=== PATIENT | male | born 1965 | race Caucasian/White ===

== ENCOUNTER 2021-09-21 10:29 | Outpatient (CLI) | payer MEDICARE, SELFPAY ==
[2021-09-21 20:05] LABS: Alanine Aminotransferase 25 U/L (6-50); Albumin Level 4.7 g/dL (3.5-5.1); Alkaline Phosphatase 84 U/L (38-126); Anion Gap 8 mmol/L (8-16); Aspartate Amino Transferase 31 U/L (17-59); Bilirubin,Total 0.8 mg/dL (0.2-1.3); Blood Urea Nitrogen 11 mg/dL (9-20); Calcium 9.3 mg/dL (8.4-10.2); Carbon Dioxide 23 mmol/L (22-30); Chloride 99 mmol/L (98-107); Cholesterol 191 mg/dL (0-200); Estimated Glomerular Filt Rate > 60; Glucose 118 mg/dL (65-110); HDL Direct 44 mg/dL; Potassium 4.6 mmol/L (3.4-5.0); Sodium 130 mmol/L (137-145); Triglycerides 190 mg/dL (<150)
[2021-09-21 20:24] LABS: LDL Cholesterol Direct 99 mg/dL
[2021-09-21 20:28] LABS: Prostate Specific Antigen 0.9 ng/mL (< OR = 4.0)
[2021-09-21 20:29] LABS: Hemoglobin A1C 5.7 % (<5.7)
== END 2021-09-21 10:30 | disposition home or self-care (01) ==
PROVIDERS: PCP Family Medicine; Visit Provider Family Medicine
DX: Z12.5 Encounter for screening for malignant neoplasm of prostate (principal); Z51.81 Encounter for therapeutic drug level monitoring; R73.01 Impaired fasting glucose; I10 Essential (primary) hypertension; E78.5 Hyperlipidemia, unspecified; Z79.899 Other long term (current) drug therapy
CPT/HCPCS: 36415; 80053; 80061; 83036; 84153; G0103

== ENCOUNTER 2021-09-22 11:49 | Outpatient (CLI) | payer MEDICARE, SELFPAY ==
[2021-09-22 19:02] LABS: Anion Gap 9 mmol/L (8-16); Blood Urea Nitrogen 10 mg/dL (9-20); Calcium 9.9 mg/dL (8.4-10.2); Carbon Dioxide 27 mmol/L (22-30); Chloride 97 mmol/L (98-107); Estimated Glomerular Filt Rate > 60; Glucose 151 mg/dL (65-110); Potassium 5.1 mmol/L (3.4-5.0); Sodium 133 mmol/L (137-145)
== END 2021-09-22 11:50 | disposition home or self-care (01) ==
PROVIDERS: PCP Family Medicine; Visit Provider Family Medicine
DX: E87.1 Hypo-osmolality and hyponatremia (principal)
CPT/HCPCS: 36415; 80048

== ENCOUNTER 2021-09-30 15:19 | Outpatient (CLI) | payer MEDICARE, SELFPAY ==
[2021-09-30 18:40] LABS: Anion Gap 9 mmol/L (8-16); Blood Urea Nitrogen 13 mg/dL (9-20); Calcium 9.1 mg/dL (8.4-10.2); Carbon Dioxide 26 mmol/L (22-30); Chloride 103 mmol/L (98-107); Estimated Glomerular Filt Rate > 60; Glucose 127 mg/dL (65-110); Potassium 4.7 mmol/L (3.4-5.0); Sodium 138 mmol/L (137-145)
== END 2021-09-30 15:20 | disposition home or self-care (01) ==
LOC: ANHGOSHLAB 15:23
PROVIDERS: PCP Family Medicine; Visit Provider Family Medicine
DX: E87.1 Hypo-osmolality and hyponatremia (principal)
CPT/HCPCS: 36415; 80048

== ENCOUNTER 2022-02-21 09:57 | Outpatient (CLI) | payer MEDICARE, SELFPAY ==
[2022-02-21 19:44] LABS: Hemoglobin A1C 5.7 % (<5.7)
[2022-02-21 20:59] LABS: Alanine Aminotransferase 31 U/L (6-50); Albumin Level 4.5 g/dL (3.5-5.1); Alkaline Phosphatase 83 U/L (38-126); Anion Gap 7 mmol/L (8-16); Aspartate Amino Transferase 34 U/L (17-59); Bilirubin,Total 0.5 mg/dL (0.2-1.3); Blood Urea Nitrogen 12 mg/dL (9-20); Calcium 9.1 mg/dL (8.4-10.2); Carbon Dioxide 26 mmol/L (22-30); Chloride 103 mmol/L (98-107); Cholesterol 181 mg/dL (0-200); Estimated Glomerular Filt Rate > 60; Glucose 93 mg/dL (65-110); HDL Direct 44 mg/dL; Potassium 5.1 mmol/L (3.4-5.0); Sodium 136 mmol/L (137-145); Triglycerides 200 mg/dL (<150)
[2022-02-21 21:10] LABS: LDL Cholesterol Direct 89 mg/dL
== END 2022-02-21 09:58 | disposition home or self-care (01) ==
LOC: ANHGOSHLAB 09:59
PROVIDERS: PCP Family Medicine; Visit Provider Nurse Practitioner
DX: R73.03 Prediabetes (principal); E78.5 Hyperlipidemia, unspecified
CPT/HCPCS: 36415; 80053; 80061; 83036

== ENCOUNTER 2022-11-27 11:26 | Outpatient (CLI) | payer MEDICARE, SELFPAY ==
[2022-11-27 19:55] LABS: Alanine Aminotransferase 31 U/L (6-50); Albumin Level 4.7 g/dL (3.5-5.1); Alkaline Phosphatase 74 U/L (38-126); Anion Gap 8 mmol/L (8-16); Aspartate Amino Transferase 35 U/L (17-59); Bilirubin,Total 0.7 mg/dL (0.2-1.3); Blood Urea Nitrogen 14 mg/dL (9-20); Calcium 9.3 mg/dL (8.4-10.2); Carbon Dioxide 22 mmol/L (22-30); Chloride 100 mmol/L (98-107); Cholesterol 197 mg/dL (0-200); Estimated Glomerular Filt Rate > 60; Glucose 118 mg/dL (65-110); HDL Direct 42 mg/dL; Potassium 4.4 mmol/L (3.4-5.0); Sodium 130 mmol/L (137-145); Triglycerides 284 mg/dL (<150)
[2022-11-27 20:06] LABS: Prostate Specific Antigen 0.8 ng/mL (< OR = 4.0)
[2022-11-27 20:07] LABS: LDL Cholesterol Direct 102 mg/dL
[2022-11-27 20:31] LABS: Hemoglobin A1C 5.6 % (<5.7)
== END 2022-11-27 11:27 | disposition home or self-care (01) ==
LOC: ANHGOSHLAB 11:27
PROVIDERS: Nurse Practitioner; PCP Family Medicine; Visit Provider Family Medicine
DX: Z12.5 Encounter for screening for malignant neoplasm of prostate (principal); E78.5 Hyperlipidemia, unspecified; I10 Essential (primary) hypertension; R73.03 Prediabetes; Z79.899 Other long term (current) drug therapy
CPT/HCPCS: 36415; 80053; 80061; 83036; 84153; 84443; G0103

== ENCOUNTER 2023-04-10 11:13 | Outpatient (CLI) | payer MEDICARE, SELFPAY | END 2023-04-10 11:14 | disposition home or self-care (01) | PROVIDERS: PCP Family Medicine; Visit Provider Nurse Practitioner | DX: Z12.5 Encounter for screening for malignant neoplasm of prostate (principal); E78.5 Hyperlipidemia, unspecified; E03.9 Hypothyroidism, unspecified; R73.03 Prediabetes | CPT/HCPCS: 36415; 84153; G0103 ==

== ENCOUNTER 2023-08-24 10:46 | Outpatient (CLI) | payer MEDICARE, SELFPAY ==
[2023-08-24 14:22] LABS: Hemoglobin 14.5 g/dL (14.0-18.0); Mean Corpuscular HGB Conc 33.7 g/dl (32-36); Mean Corpuscular Hemoglobin 33.1 pg (26-34); Mean Corpuscular Volume 98.2 fl (80-100); Mean Platelet Volume 11.1 fl (7.4-10.4); Platelet Count Result 258 k/mm3 (150-375); Red Blood Count 4.38 M/mm3 (4.6-6.20); Red Cell Distribution Width 13.1 % (11.5-14.5); White Blood Count 7.8 K/mm3 (4.5-10.0)
[2023-08-24 14:54] LABS: LDL Cholesterol Direct 89 mg/dL
[2023-08-24 14:56] LABS: Alanine Aminotransferase 37 U/L (6-50); Albumin Level 4.5 g/dL (3.5-5.1); Alkaline Phosphatase 73 U/L (38-126); Anion Gap 11 mmol/L (4-12); Aspartate Amino Transferase 43 U/L (17-59); Bilirubin,Total 0.5 mg/dL (0.2-1.3); Blood Urea Nitrogen 12 mg/dL (9-20); Calcium 9.6 mg/dL (8.4-10.2); Carbon Dioxide 26 mmol/L (22-30); Chloride 101 mmol/L (98-107); Cholesterol 157 mg/dL (0-200); Estimated Glomerular Filt Rate > 60; Glucose 106 mg/dL (65-110); HDL Direct 41 mg/dL; Potassium 5.2 mmol/L (3.4-5.0); Sodium 138 mmol/L (137-145); Triglycerides 202 mg/dL (<150)
[2023-08-24 15:01] LABS: Hemoglobin A1C 5.9 % (<5.7)
[2023-08-24 15:33] LABS: Hepatitis C Virus Antibody Negative (Negative)
== END 2023-08-24 10:47 | disposition home or self-care (01) ==
LOC: ANHGOSHLAB 10:47
PROVIDERS: PCP Family Medicine; Visit Provider Nurse Practitioner
DX: E78.5 Hyperlipidemia, unspecified (principal); I10 Essential (primary) hypertension; E03.9 Hypothyroidism, unspecified; R73.03 Prediabetes; Z11.59 Encounter for screening for other viral diseases
CPT/HCPCS: 36415; 80053; 80061; 83036; 84443; 85027; 86803

== ENCOUNTER 2024-01-28 10:44 | Outpatient (CLI) | payer MEDICARE, SELFPAY ==
[2024-01-28 21:17] LABS: Alanine Aminotransferase 43 U/L (6-50); Albumin Level 4.4 g/dL (3.5-5.1); Alkaline Phosphatase 83 U/L (38-126); Anion Gap 6 mmol/L (4-12); Aspartate Amino Transferase 36 U/L (17-59); Bilirubin,Total 0.6 mg/dL (0.2-1.3); Blood Urea Nitrogen 8 mg/dL (9-20); Calcium 9.2 mg/dL (8.4-10.2); Carbon Dioxide 25 mmol/L (22-30); Chloride 102 mmol/L (98-107); Cholesterol 172 mg/dL (0-200); Estimated Glomerular Filt Rate > 60; Glucose 110 mg/dL (65-110); HDL Direct 46 mg/dL; Sodium 133 mmol/L (137-145); Triglycerides 215 mg/dL (<150)
[2024-01-28 21:28] LABS: LDL Cholesterol Direct 79 mg/dL
[2024-01-28 21:35] LABS: Hemoglobin A1C 5.8 % (<5.7)
== END 2024-01-28 10:45 | disposition home or self-care (01) ==
LOC: ANHGOSHLAB 10:46
PROVIDERS: PCP Family Medicine; Visit Provider Nurse Practitioner
DX: E78.5 Hyperlipidemia, unspecified (principal); R73.03 Prediabetes
CPT/HCPCS: 36415; 80053; 80061; 83036

== ENCOUNTER 2024-06-06 10:36 | Outpatient (CLI) | payer MEDICARE, SELFPAY ==
--- OUTSIDE RECORDS SUMMARY | 2024-06-06 10:59 | XMS_ITS | Referral Summary ---
Author Organization [facility] [place] [address] Address [address] [place] [address] Care Team Providers Care Medicaid Billing Clerk Name Role Phone Sarina Isidro DO Primary Care Provider [phone]- [phone] Encounters Date Type Department Care Team Description 03/10/2024 Telephone [facility] Cardiology [address] [place] [address] Anatoliy Perez MD from Last 3 Months Allergies No known active allergies Medications aspirin 81 mg tablet Take 1 tablet (81 mg total) by mouth 2 (two) times a day Active PARoxetine (PAXIL) 10 mg tabletIndicati ons:Anxiety with Depression Take 1 tablet (10 mg total) by mouth daily as needed Active nitroglycerin (Nitrostat) 0.[address] 1 tablet (0.4 mg total) under the tongue every 5 (five) minutes as needed for chest pain 30 tablet 3 3 Active lisinopriL (PRINIVIL,ZEST RIL) 20 mg tablet TAKE 1 TABLET BY MOUTH EVERY DAY 90 tablet 2 4 Active carvediloL (COREG) 12.5 mg tablet TAKE 1 TABLET BY MOUTH TWICE A DAY WITH FOOD 180 tablet 2 4 Active rosuvastatin (CRESTOR) 20 mg tablet TAKE 1 TABLET BY MOUTH EVERY DAY 90 tablet 2 5 Active rosuvastatin (CRESTOR) 20 mg tablet Take 1 tablet (20 mg total) by mouth daily 90 tablet 3 4 05/31/19 25 Discontinued Active Problems Problem Noted Date Diagnosed Date Angina pectoris, unspecified 12/13/2022 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 Overview (03/23/2021): Added automatically from request for surgery [id number] Assessment & Plan (04/15/2021 10:01 AM PUBLIC SAFETY TEACHER): - 3/2 S/p right superficial femoral artery to posterior tibial artery vein bypass - OU - Q4 hr NV checks - Pain control: Tylenol, oxycodone PRN - Advance diet as tolerated - Increase activity: OOB with assistance - PT/OT recommendations appreciated - Continue ASA, statin - DVT prophylaxis - Resume home meds as able Cardiomyopathy, ischemic 08/02/2017 Coronary arteriosclerosis in [place] artery 01/02 Overview (05/18/2016): Coronary arteriosclerosis in [place] Immunizations Immunization Administration Dates Next Due Influenza, Unspecified 11/12/2020 Social History Tobacco Use Types Packs/Day Years Used Date Smoking Tobacco: Former Cigarettes Q uit: 2020 Passive Smoke Exposure: Past Smokeless Tobacco: Never Tobacco Cessation:Counseling Given: Not Answered Alcohol Use Standard Drinks/Week Comments No 0 (1 standard drink = 0.6 oz pur e alcohol) AUDIT-C Answer Date Recorded Q1: How often do you have a drink containing alcohol? 4 or more times a week 05/16/2021 Q2: How many drinks containi ng alcohol do you have on a typical day when you are drinking? 3 or 4 Frequency of Binge Drinking Not on file 05/2021 Sex and Gender Information Value Date Recorded Sex Assigned at Not on file Legal Sex Male 2:33 AM PUBLIC SAFETY TEACHER Gender Identity Not on file Sexual Orientation Not on file Last Filed Vital Signs Vital Sign Reading Time Taken Comments Blood Pressure 126/86 01/24/2024 8:46 AM PUBLIC SAFETY TEACHER Pulse 78 01/24/2024 8:46 AM PUBLIC SAFETY TEACHER Temperature 35.9 C (96.7 F) 11/12/2023 11:33 AM CDT Respiratory Rate 12 05/16/2021 10:48 AM CDT Oxygen Saturation 95% 01/24/2024 8:46 AM PUBLIC SAFETY TEACHER Inhaled Oxygen Concentration - - Weight 99.3 kg (219 lb) 01/24/2024 8:46 AM PUBLIC SAFETY TEACHER Height 182.9 cm (6') 01/24/2024 8:46 AM PUBLIC SAFETY TEACHER Body Mass Index 29.7 01/24/2024 8:46 AM PUBLIC SAFETY TEACHER Plan of Treatment Not on file Insurance [employer] MEDICARE GOLD [employer] MEDICARE GOLD A[employer] MEDICARE GOLD Advance Directives For more information, please contact: [phone] * Full Code (Latest Code Status on File) Date Activated Date Inactivated Comments 04/13/2021 4:10 PM 04/16/2021 7:23 PM Care Teams Medicaid Billing Clerk Relationship Specialty Start Date End Date Sarina Isidro DO PCP - General Family Medicine 04/24/19
--- OUTSIDE RECORDS SUMMARY | 2024-06-06 10:59 | XMS_ITS | Clinical Summary ---
Author Organization [facility] [address] Address [address] [place] [address] Care Team Providers Care Machine Farmworker Name Role Phone Sarina Isidro DO Primary Care Provider [phone]- [phone] Allergies No known active allergies Medications aspirin [...] (03/23/2021): Added automatically from request for surgery [id number] Assessment & Plan (04/15/2021 10:01 AM PEDIATRIC NEUROLOGIST): - 3/2 S/p right superficial femoral artery to posterior tibial artery vein bypass - OU - Q4 hr [place] checks - Pain control: Tylenol, oxycodone PRN - Advance diet as tolerated - Increase activity: OOB with assistance - PT/OT recommendations appreciated - Continue ASA, statin - DVT prophylaxis - Resume home meds as able Cardiomyopathy, ischemic 08/02/2017 Coronary arteriosclerosis in [place] artery 01/02 Overview (05/18/2016): Coronary arteriosclerosis in [place] artery Encounters Date Type Department Care Team Description 03/10/2024 Telephone [facility] Cardiology [address] [place] [address] Anatoliy Perez MD from Last 3 Months Immunizations Immunization Administration Dates Next Due Influenza, Unspecified 11/12/2020 Medical History Medical History Date Comments Hypertension Hypertension Family History Relation Name Status Comments Father Alive Mother Alive Social History Tobacco Use Types Packs/Day Years [...] on file Legal Sex Male 2:33 AM PEDIATRIC NEUROLOGIST Gender Identity Not on file Sexual Orientation Not on file Obstetrics History Last Filed Vital Signs Vital Sign Reading Time Taken Comments Blood Pressure 126/86 01/24/2024 8:46 AM PEDIATRIC NEUROLOGIST Pulse 78 01/24/2024 8:46 AM PEDIATRIC NEUROLOGIST Temperature 35.9 C (96.7 F) 11/12/2023 11:33 AM CDT Respiratory Rate 12 05/16/2021 10:48 AM CDT Oxygen Saturation 95% 01/24/2024 8:46 AM PEDIATRIC NEUROLOGIST Inhaled Oxygen Concentration - - Weight 99.3 kg (219 lb) 01/24/2024 8:46 AM PEDIATRIC NEUROLOGIST Height 182.9 cm (6') 01/24/2024 8:46 AM PEDIATRIC NEUROLOGIST Body Mass Index 29.7 01/24/2024 8:46 AM PEDIATRIC NEUROLOGIST Plan of Treatment Health Maintenance Due Date Last Done Comments Colon Cancer Screening-Colonoscopy 1964 Depression Screening 1964 Hepatitis C Screening 1964 Prostate Cancer Screening-PSA 1964 DTaP/Tdap/Td Vaccine (1 - Tdap) 1975 Hepatitis B Screening 1982 Regular Well Visit/Exam 18-64 1982 Zoster Vaccine (1 of 2) 2014 Influenza Vaccine (Season Ended) 2024 11/12/2020, 10/13/2019, 11/19/2018, Additional history exists Pneumococcal vaccine <65 Aged Out No longer eligible based on patient's age to complete this topic Insurance [facility] MEDICARE GOLD [facility] MEDICARE [facility] AETNA MEDICARE GOLD Advance Directives For more information, please contact: [phone] * Full Code (Latest Code Status on File) Date Activated Date Inactivated Comments 04/13/2021 4:10 PM 04/16/2021 7:23 PM Care Teams Machine Farmworker Relationship Specialty Start Date End Date Sarina Isidro DO PCP - General Family Medicine 04/24/19
[2024-06-06 18:46] LABS: Hematocrit 41.3 % (42.0-52.0); Hemoglobin 13.7 g/dL (14.0-18.0); Mean Corpuscular HGB Conc 33.2 g/dl (32-36); Mean Corpuscular Hemoglobin 32.5 pg (26-34); Mean Corpuscular Volume 97.9 fl (80-100); Mean Platelet Volume 10.8 fl (7.4-10.4); Platelet Count Result 237 k/mm3 (150-375); Red Blood Count 4.22 M/mm3 (4.6-6.20); Red Cell Distribution Width 12.8 % (11.5-14.5); White Blood Count 6.7 K/mm3 (4.5-10.0)
[2024-06-06 18:50] LABS: Alanine Aminotransferase 33 U/L (6-50); Albumin Level 4.3 g/dL (3.5-5.1); Alkaline Phosphatase 77 U/L (38-126); Anion Gap 8 mmol/L (4-12); Aspartate Amino Transferase 36 U/L (17-59); Bilirubin,Total 0.5 mg/dL (0.2-1.3); Blood Urea Nitrogen 10 mg/dL (9-20); Carbon Dioxide 24 mmol/L (22-30); Chloride 103 mmol/L (98-107); Cholesterol 164 mg/dL (0-200); Estimated Glomerular Filt Rate > 60; Glucose 102 mg/dL (65-110); HDL Direct 38 mg/dL; Potassium 4.6 mmol/L (3.4-5.0); Sodium 135 mmol/L (137-145); Triglycerides 202 mg/dL (<150)
[2024-06-06 19:01] LABS: LDL Cholesterol Direct 74 mg/dL
[2024-06-06 19:08] LABS: Hemoglobin A1C 5.6 % (<5.7)
== END 2024-06-06 10:37 | disposition home or self-care (01) ==
LOC: ANHGOSHLAB 10:37
PROVIDERS: PCP Family Medicine; Visit Provider Nurse Practitioner
DX: E03.9 Hypothyroidism, unspecified (principal); I10 Essential (primary) hypertension; E78.5 Hyperlipidemia, unspecified; R73.03 Prediabetes; Z12.5 Encounter for screening for malignant neoplasm of prostate
CPT/HCPCS: 36415; 80053; 80061; 83036; 84153; 84443; 85027; G0103